=== PATIENT | male | born 1985 | race Two or more races ===

== ENCOUNTER 2017-11-13 13:28 | Emergency (ER) | END 2017-11-13 15:51 | disposition home or self-care (01) ==

== ENCOUNTER 2018-11-15 07:29 | Emergency (ER) | payer OTHER ==
[~2018-11-15] VITALS: Ht 170.2 cm; Wt 96.9 kg
[~2018-11-15 07:29] MED LIST: AZIT250T PO; GUAI118L22 PO; IBUP-1542 PO
[2018-11-15 07:31] VITALS: Ht 170.2 cm; Wt 96.9 kg
[2018-11-15] MEDS ORDERED: KETOROLAC 30 MG INJ IV STA ×2 (07:41→07:44)
[2018-11-15] MEDS ORDERED: morphine 4 MG/ML VIAL IV STA ×2 (07:41→07:44)
[2018-11-15] MEDS ORDERED: ONDANSETRON 4 MG INJ IV STA ×2 (07:41→07:44)
[2018-11-15] MEDS ORDERED: SOD CHLORIDE 0.9% 500 ML IV STA (07:44)
[2018-11-15] MEDS ORDERED: IBUP1TAB76 PO (08:35)
[2018-11-15] MEDS ORDERED: IBUP-1544 PO (08:35)
[2018-11-15] MEDS ORDERED: HYDR-4011 PO (08:44)
[2018-11-15] MEDS ORDERED: ONDA4TAB8 PO (08:44)
[2018-11-15] MEDS ORDERED: IBUP-1542 PO (08:44)
--- NOTE | 2018-11-15 08:48 | ERD ---
ER Documentation Chief Complaint Chief Complaint LT FLANK PAIN HPI 33-year-old male presents the emergency department complaining of left flank pain. Patient was in his usual state of health until this morning at which time he developed the acute onset of a non-provoked, severe left flank pain. Pain radiated towards his groin. He had some difficulty urinating. He had no hematuria. Patient reports no fevers, chills, anorexia. Patient reports no diarrhea. Currently, the patient reports the pain as moderate to severe. ROS All systems reviewed and are negative except as per history of present illness. Medications Home Meds Active Scripts Ondansetron Hcl* (Zofran*) 4 Mg Tablet, 4 MG PO Q8H PRN for NAUSEA AND/OR VOMITING, #30 TAB Prov:LEONARDO SEWELL 11/15/18 Hydrocodone/Acetaminophen ([place] 5-325 Tablet) 1 Each Tablet, 1 EACH PO TID for pain, #10 TAB Prov:LEONARDO SEWELL 11/15/18 Ibuprofen* (Ibuprofen*) 600 Mg Tablet, 600 MG PO Q6H PRN for PAIN, #30 TAB Prov:LEONARDO SEWELL 11/15/18 Reported Medications Ibuprofen-Famotidine (Duexis) 80-26.6 Mg Tablet, 1 MG PO DAILY 11/15/18 Discontinued Reported Medications Ibuprofen* (Ibuprofen*) 800 Mg Tablet, 800 MG PO DAILY PRN for PAIN, TAB 11/15/18 Discontinued Scripts Guaifenesin/Codeine Phosphate (CHERATUSSIN AC SYRUP) 118 Ml Liquid, 5 ML PO Q4H PRN for COUGH, #118 ML Prov:MILE LAGUNA PA-C 11/13/17 Ibuprofen* (Motrin*) 600 Mg Tab, 600 MG PO Q6, #30 TAB Prov:MILE LAGUNA PA-C 11/13/17 Azithromycin* (Zithromax*) 250 Mg Tablet, 250 MG PO .ZPACK DIRECTED, #6 TAB TAKE 500 MG (2 TABS) THE FIRST DAY THEN 250 MG (1 TAB) DAYS 2-5 Prov:MILE LAGUNA PA-C 11/13/17 Allergies Allergies: Coded Allergies: No Known Allergy (Verified , 06/20/11) PMhx/Soc History of Surgery: No (NO MEDICAL CONDITIONS OR SURGICAL HISTORY) Anesthesia Reaction: No Hx Neurological Disorder: No Hx Respiratory Disorders: No Hx Cardiac Disorders: No Hx Psychiatric Problems: No Hx Miscellaneous Medical Probl: No Hx Alcohol Use: No Hx Substance Use: No Hx Tobacco Use: No Smoking Status: Never smoker FmHx Noncontributory for chief complaint Physical Exam Vitals Vital Signs Date Temp Pulse Resp B/P (MAP) Pulse Ox O2 O2 Flow FiO2 Time Delivery Rate 11/15/18 97.4 96 22 149/92 100 07:31 (111) Physical Exam GENERAL: The patient is well developed and appropriate for usual state of health in no apparent distress HEENT: Pupils equal, round, and reactive to light. EOMI. There is no scleral icterus. NECK: C-spine is soft and supple, there is no meningismus. There is no cervical lymphadenopathy. LUNGS: Clear to auscultation bilaterally. There are no rales, wheezes or rhonchi. HEART: Regular rate and rhythm, no murmurs, clicks, rubs or gallops. ABDOMEN: Soft, non-tender, non-distended. There are bowel sounds in all four quadrants. No rebound or guarding. No CVA tenderness EXTREMITIES: There is no peripheral cyanosis or edema. No focal swelling or erythema. NEURO: The patient moves all four extremities with 5/5 strength. Cranial nerves II - XII are intact. Normal gait. Alert and oriented SKIN: There is no apparent rash or petechiae. HEME/LYMPHATIC: There is no evidence of excessive bruising or lymphedema. PSYCHIATRIC: The patient does not appear anxious or depressed. Result Diagram: 11/15/18 0750 Results 24 hrs Laboratory Tests Test 11/15/18 07:50 White Blood Count 9.2 10^3/ul Red Blood Count 4.85 10^6/ul Hemoglobin 13.6 g/dl Hematocrit 42.8 % Mean Corpuscular Volume 88.2 fl Mean Corpuscular Hemoglobin 28.0 pg Mean Corpuscular Hemoglobin Concent 31.8 g/dl Red Cell Distribution Width 13.6 % Platelet Count 205 10^3/UL Mean Platelet Volume 11.0 fl Immature Granulocytes % 0.300 % Neutrophils % 60.7 % Lymphocytes % 29.4 % Monocytes % 6.9 % Eosinophils % 1.9 % Basophils % 0.8 % Nucleated Red Blood Cells % 0.0 /100WBC Immature Granulocytes # 0.030 10^3/ul Neutrophils # 5.6 10^3/ul Lymphocytes # 2.7 10^3/ul Monocytes # 0.6 10^3/ul Eosinophils # 0.2 10^3/ul Basophils # 0.1 10^3/ul Nucleated Red Blood Cells # 0.0 10^3/ul Urine Color YELLOW Urine Clarity CLEAR Urine pH 5.0 Urine Specific [place] 1.019 Urine Ketones NEGATIVE mg/dL Urine Nitrite NEGATIVE mg/dL Urine Bilirubin NEGATIVE mg/dL Urine Urobilinogen NEGATIVE mg/dL Urine Leukocyte Esterase NEGATIVE [place]/ul Urine Microscopic RBC 0 /HPF Urine Microscopic WBC 0 /HPF Urine Bacteria FEW /HPF Urine Hemoglobin 1+ mg/dL Urine Glucose NEGATIVE mg/dL Urine Total Protein NEGATIVE mg/dl Current Medications Medications Dose Sig/Vaibhav Start Time Status Last (Trade) Ordered Route PRN Stop Time Admin Dose Reason Admin Ketorolac 30 mg ONCE STAT 11/15/18 DC 11/15/18 Tromethamine IV 07:41 08:00 (Toradol) 11/15/18 07:55 Morphine 4 mg ONCE STAT 11/15/18 DC 11/15/18 Sulfate IV 07:41 08:03 (morphine) 11/15/18 07:55 Ondansetron 4 mg ONCE STAT 11/15/18 DC 11/15/18 HCl (Zofran IV 07:41 08:01 Inj) 11/15/18 07:55 Sodium 500 ml @ Q1H STAT 11/15/18 DC 11/15/18 Chloride 500 mls/hr IV 07:44 08:01 11/15/18 08:43 Morphine 4 mg ONCE STAT 11/15/18 DC Sulfate IV 07:44 (morphine) 11/15/18 07:45 Ondansetron 4 mg ONCE STAT 11/15/18 DC HCl (Zofran IV 07:44 Inj) 11/15/18 07:45 Ketorolac 30 mg ONCE STAT 11/15/18 DC Tromethamine IV 07:44 (Toradol) 11/15/18 07:45 Procedures/MDM Patient was taken to a room, seen and evaluated. Comfort measures were initiated. Diagnostic tests were ordered and reviewed. RADIOLOGY: Reviewed with the radiologist REEVALUATION: 0845: Diagnostic tests were appreciated. Patient was reevaluated and was pain-free with a benign abdomen. MEDICAL DECISION MAKIN-year-old male presents with flank pain of uncertain etiology. Although differential diagnosis entertained included intra-abdominal concerns, the patient's diagnostic workup demonstrates evidence of a small kidney stone. Patient has complete resolution of his discomfort with no evidence of secondary infection and seems appropriate for outpatient care at this time. Departure Diagnosis: Primary Impression: Kidney stone Condition: Stable Patient Instructions: Kidney Stone, Passed Additional Instructions: See your doctor for follow-up as discussed. Take a copy of your test results, if appropriate, to this follow-up visit. See your doctor or return here if your symptoms do not improve as expected. At any time, please return to the emergency department for any change or worsening in her symptoms. LEONARDO SEWELL Nov 15, 2018 08:48
[2018-11-15 09:06] VITALS: BP 130/78; PULSE 78; RESP 20
== END 2018-11-15 09:06 | disposition home or self-care (01) ==
LOC: E/R 07:29
DX: N20.0 Calculus of kidney (principal)
CPT/HCPCS: 36415; 74176; 80053; 81001; 83690; 85025; 96374; 96375; 99285; J1885; J2270; J2405; J7040